=== PATIENT | female | born 1985 | race Caucasian/White ===

== ENCOUNTER 2020-06-17 13:11 | Emergency (ER) | payer OTHER ==
[2020-06-17 13:29] VITALS: BP 112/75; PULSE 92; RESP 18; TEMP 98.9
[2020-06-17] MEDS ORDERED: ACET/COD 300 MG/30 MG STARTER PACK 6 TAB BTL PO STA (13:43)
--- NOTE | 2020-06-17 13:43 | ED ---
ENT HPI - General Chief complaint: Dental/Oral Stated complaint: dental pain Time Seen by Provider: 06/17/20 13:31 Source: patient, RN notes reviewed Mode of arrival: ambulatory Limitations: no limitations - History of Present Illness Initial comments: 35-year-old female presents emergency from she went left upper dental pain. Patient states has been bothersome or last 4 days states the pain has been worse over the night. No fevers or chills no trismus no difficulty swallowing. She's had some caji-ilr-[id number] medications no relief has not seen a dentist recently. She states she has known bad dentition. - Related Data Previous Rx's Medication Instructions Recorded Ibuprofen [Motrin] 600 mg PO Q8HR PRN #20 tab 06/17/20 Penicillin V Potassium [Pen Vee K] 500 mg PO QID #40 tablet 06/17/20 Allergies Allergy/AdvReac Type Severity Reaction Status Date / Time No Known Allergies Allergy Verified 06/17/20 13:25 Review of Systems ROS Statement: Those systems with pertinent positive or pertinent negative responses have been documented in the HPI. ROS Other: All systems not noted in ROS Statement are negative. Past Medical History Past Medical History: No Reported History History of Any Multi-Drug Resistant Organisms: None Reported Past Surgical History: Section Past Psychological History: Anxiety, Depression Smoking Status: Current every day smoker Past Alcohol Use History: Occasional Past Drug Use History: None Reported General Exam Limitations: no limitations General appearance: alert, in no apparent distress Head exam: Present: atraumatic, normocephalic, normal inspection Eye exam: Present: normal appearance, PERRL, EOMI. Absent: scleral icterus, conjunctival injection, periorbital swelling ENT exam: Present: mucous membranes moist, TM's normal bilaterally, normal external ear exam. Absent: normal oropharynx (Dental fracture left upper, no drainable abscess mild erythema mild facial swelling) Neck exam: Present: normal inspection, full ROM. Absent: tenderness, meningismus, lymphadenopathy Respiratory exam: Present: normal lung sounds bilaterally. Absent: respiratory distress, wheezes, rales, rhonchi, stridor Cardiovascular Exam: Present: regular rate, normal rhythm, normal heart sounds. Absent: systolic murmur, diastolic murmur, rubs, gallop, clicks Course Vital Signs 06/17/20 13:26 Temperature 98.9 F Pulse Rate 92 Respiratory 18 Rate Blood Pressure 112/75 O2 Sat by Pulse 98 Oximetry Medical Decision Making - Medical Decision Making Patient has a left upper dental infection, dental fracture will follow-up with oral surgery return parameters were discussed. Disposition Clinical Impression: Toothache, Fracture of tooth Disposition: HOME SELF-CARE Condition: Stable Instructions (If sedation given, give patient instructions): Toothache (ED), Dental Abscess (ED) Additional Instructions: Please return to the Emergency Department if symptoms worsen or any other concerns. Prescriptions: Ibuprofen [Motrin] 600 mg PO Q8HR PRN #20 tab PRN Reason: Pain Penicillin V Potassium [Pen Vee K] 500 mg PO QID #40 tablet Is patient prescribed a controlled substance at d/c from ED?: No Referrals: None,Stated [Primary Care Provider] - 1-2 days Arden Kirkpatrick DDS [STAFF PHYSICIAN] - 1-2 days Time of Disposition: 13:43
== END 2020-06-17 13:55 | disposition home or self-care (01) ==
LOC: EC 13:11
DX: S02.5XXA Fracture of tooth (traumatic), initial encounter for closed fracture (principal); K04.7 Periapical abscess without sinus; F17.200 Nicotine dependence, unspecified, uncomplicated; X58.XXXA Exposure to other specified factors, initial encounter
CPT/HCPCS: 99282

== ENCOUNTER 2022-05-23 14:15 | Emergency (ER) | payer OTHER ==
[2022-05-23 15:45] VITALS: BP 145/79; PULSE 89; RESP 18; TEMP 98.5
[2022-05-23] MEDS ORDERED: ACETAMINOPHEN TAB 325 MG TAB PO STA (15:57)
[2022-05-23] MEDS ORDERED: CLINDAMYCIN 150 MG CAP PO STA (15:59)
--- NOTE | 2022-05-23 16:03 | ED ---
General Adult HPI - General Chief complaint: Skin/Abscess/Foreign Body Stated complaint: left abcess tooth Time Seen by Provider: 05/23/22 15:50 Source: patient, RN notes reviewed, old records reviewed Mode of arrival: ambulatory - History of Present Illness Initial comments: 37-year-old female presents ambulatory with complaints of left upper dental pain for the past 3 days. Patient states started to have some facial swelling and left maxillary yesterday so she took her boyfriend was amoxicillin today she developed a rash. Denies any fevers. No nausea vomiting diarrhea. -: days(s) (3) Location: mouth (left upper tooth 14) Associated Symptoms: rash (after taking amoxicillin yesterday) - Related Data Previous Rx's Medication Instructions Recorded Ibuprofen [Motrin] 600 mg PO Q8HR PRN #20 tab 06/17/20 Penicillin V Potassium [Pen Vee K] 500 mg PO QID #40 tablet 06/17/20 Clindamycin [Cleocin] 450 mg PO Q8H 10 Days #30 cap 05/23/22 Ibuprofen [Motrin] 600 mg PO Q8HR PRN #30 tab 05/23/22 Allergies Allergy/AdvReac Type Severity Reaction Status Date / Time No Known Allergies Allergy Verified 05/23/22 15:45 Review of Systems ROS Statement: Those systems with pertinent positive or pertinent negative responses have been documented in the HPI. ROS Other: All systems not noted in ROS Statement are negative. Past Medical History Past Medical History: No Reported History History of Any Multi-Drug Resistant Organisms: None Reported Past Surgical History: Section Past Psychological History: Anxiety, Depression Smoking Status: Former smoker Past Alcohol Use History: Occasional Past Drug Use History: None Reported General Exam General appearance: alert, in no apparent distress Head exam: Present: atraumatic Eye exam: Present: periorbital swelling, periorbital tenderness Expanded Mouth exam: Present: tongue normal, tongue elevation. Absent: drooling, trismus, muffled voice Teeth exam: Present: dental caries, dental tenderness # (14) Neck exam: Present: full ROM. Absent: tenderness, meningismus, lymphadenopathy Respiratory exam: Absent: respiratory distress, accessory muscle use Cardiovascular Exam: Present: regular rate Neurological exam: Present: alert, oriented X3 Psychiatric exam: Present: normal affect, normal mood Skin exam: Present: warm, dry, normal color. Absent: cyanosis, diaphoretic, petechiae, pallor Course Vital Signs 05/23/22 15:41 Temperature 98.5 F Pulse Rate 89 Respiratory 18 Rate Blood Pressure 145/79 O2 Sat by Pulse 97 Oximetry Medical Decision Making - Medical Decision Making Shared decision making, patient was offered CT scan for facial swelling and declined. She'll be placed on clindamycin. Follow up with a dentist this week. Strict return parameters discussed to return if she develops increased pain swelling or fevers. She is agreeable to this plan of care. She is a nonsmoker. Case discussed with Dr. Stewart Was pt. sent in by a medical professional or institution? @ -no Did you speak to anyone other than the patient for history? @ -no Did you review nursing and triage notes? @ -yes i agree Were old charts reviewed? @ -no Differential Diagnosis? @ -dental abscess, facial cellulitis, Rohit's angina EKG interpreted by me (3pts min.)? @ -[none] X-rays interpreted by me (1pt min.)? @ -[none] CT interpreted by me (1pt min.)? @ -[none] U/S interpreted by me (1pt. min.)? @ -[none] What testing was considered but not performed? (CT, X-rays, U/S, labs)? Why? @CT to rule out abscess was offered patient declined. What meds were considered but not given? Why? @ -None Did you discuss the management of the patient with other professionals? @ -no Did you reconcile home meds? @ -no Was smoking cessation discussed for >3mins.? @ -n/a Was critical care preformed (if so, how long)? @ -no Were there social determinants of health that impacted care today? How? (Homelessness, low income, unemployed, alcoholism, drug addiction, transportation, low edu. Level, literacy, decrease access to med. care, [facility], rehab)? @ -no dental coverage, medicaid only Was there de-escalation of care discussed even if they declined? (Discuss DNR or withdrawal of care, Hospice)? @ -no What co-morbidities impacted this encounter? (DM, HTN, Smoking, COPD, CAD, Cancer, CVA, Hep., AIDS, mental health diagnosis, sleep apnea, morbid obesity)? @ -none Was patient admitted / discharged? @ -discharged Undiagnosed new problem with uncertain prognosis? @ -[none] Drug Therapy requiring intensive monitoring for toxicity (Heparin, Nitro, Insulin, Cardizem)? @ -no Were any procedures done? @ -no, no identify drainable abscess Diagnosis/symptom? @ -dental abscess. Multiple dental caries Acute, or Chronic, or Acute on Chronic? @ -Acute on chronic Uncomplicated (without systemic symptoms) or Complicated (systemic symptoms)? @ -None Side effects of treatment? @ -[none] Exacerbation, Progression, or Severe Exacerbation] @ -[no] Poses a threat to life or bodily function? @ -[no] Disposition Clinical Impression: Dental abscess Disposition: HOME SELF-CARE Condition: Good Instructions (If sedation given, give patient instructions): Dental Abscess (ED) Additional Instructions: Take antibiotics as prescribed. Follow-up with a dentist as soon as possible. Return to the emergency room with any new or concerning symptoms including increased swelling, pain or fevers. [facility] [employer] [facility] [employer] [phone] Prescriptions: Clindamycin [Cleocin] 450 mg PO Q8H 10 Days #30 cap Ibuprofen [Motrin] 600 mg PO Q8HR PRN #30 tab PRN Reason: Pain Is patient prescribed a controlled substance at d/c from ED?: No Referrals: None,Stated [Primary Care Provider] - 1-2 days Time of Disposition: 16:10
[2022-05-23] MEDS ORDERED: ACET/COD 300 MG/30 MG STARTER PACK 6 TAB BTL PO STA (16:12)
[2022-05-23] MEDS ORDERED: KETOROLAC 15 MG/ML 1 ML VIAL IM SCH (16:15)
== END 2022-05-23 16:28 | disposition home or self-care (01) ==
LOC: EC 14:15
DX: K04.7 Periapical abscess without sinus (principal); F41.9 Anxiety disorder, unspecified; F32.A Depression, unspecified; Z87.891 Personal history of nicotine dependence
CPT/HCPCS: 99283; 96372; J1885

== ENCOUNTER 2024-09-05 08:43 | Emergency (ER) | payer OTHER ==
--- NOTE | 2024-09-05 09:09 | ED ---
Lower Extremity Injury HPI - General Chief Complaint: Extremity Injury, Lower Stated Complaint: R Ankle Injury Time Seen by Provider: 09/05/24 08:44 Source: patient, RN notes reviewed Mode of arrival: ambulatory Limitations: no limitations - History of Present Illness Initial Comments: 39-year-old female presents emergency department with chief complaint of right ankle injury. Patient states she stepped off a ledge rolling her ankle planted paresthesias no foot pain no other complaints - Related Data Previous Rx's Medication Instructions Recorded Ibuprofen [Motrin] 600 mg PO Q8HR PRN #20 tab 06/17/20 Penicillin V Potassium [Pen Vee K] 500 mg PO QID #40 tablet 06/17/20 Clindamycin [Cleocin] 450 mg PO Q8H 10 Days #30 cap 05/23/22 Ibuprofen [Motrin] 600 mg PO Q8HR PRN #30 tab 05/23/22 Allergies Allergy/AdvReac Type Severity Reaction Status Date / Time No Known Allergies Allergy Verified 09/05/24 08:54 Review of Systems ROS Statement: Those systems with pertinent positive or pertinent negative responses have been documented in the HPI. ROS Other: All systems not noted in ROS Statement are negative. Past Medical History Past Medical History: No Reported History History of Any Multi-Drug Resistant Organisms: None Reported Past Surgical History: Section Past Psychological History: Anxiety, Depression Smoking Status: Former smoker Past Alcohol Use History: Occasional Past Drug Use History: None Reported General Exam Limitations: no limitations General appearance: alert, in no apparent distress Head exam: Present: atraumatic, normocephalic, normal inspection Respiratory exam: Present: normal lung sounds bilaterally. Absent: respiratory distress, wheezes, rales, rhonchi, stridor Cardiovascular Exam: Present: regular rate, normal rhythm, normal heart sounds. Absent: systolic murmur, diastolic murmur, rubs, gallop, clicks Extremities exam: Present: other (Right ankle there is moderate swelling the lateral malleoli region tenderness palpation neurovasc intact no proximal tib- fib tenderness no foot tenderness.) Neurological exam: Present: alert, reflexes normal. Absent: motor sensory deficit Skin exam: Present: warm, dry, intact, normal color. Absent: rash Course Vital Signs 09/05/24 08:51 Temperature 97.7 F Pulse Rate 78 Respiratory 18 Rate Blood Pressure 129/84 O2 Sat by Pulse 100 Oximetry Medical Decision Making - Medical Decision Making Was pt. sent in by a medical professional or institution (STEPHY Ann, TOOL GRINDER OPERATOR EXTERNAL, urgent care, hospital, or group home...) When possible be specific @ -No Did you speak to anyone other than the patient for history (EMS, parent, family, police, friend...)? What history was obtained from this source @ -No Did you review nursing and triage notes (agree or disagree)? Why? @ -I reviewed and agree with nursing and triage notes Were old charts reviewed (outside hosp., previous admission, EMS record, old EKG, old radiological studies, urgent care reports/EKG's, group home records)? Report findings @ -No old charts were reviewed Differential Diagnosis (chest pain, altered mental status, abdominal pain women, abdominal pain men, vaginal bleeding, weakness, fever, dyspnea, syncope, headache, dizziness, GI bleed, back pain, seizure, CVA, palpatations, mental health, musculoskeletal)? @ -Ankle sprain, leg fracture EKG interpreted by me (3pts min.). @ -None X-rays interpreted by me (1pt min.). @ -X-ray right ankle no acute fracture, soft tissue swelling noted. CT interpreted by me (1pt min.). @ -None done U/S interpreted by me (1pt. min.). @ -None done What testing was considered but not performed or refused? (CT, X-rays, U/S, labs)? Why? @ -None What meds were considered but not given or refused? Why? @ -None Did you discuss the management of the patient with other professionals (professionals i.e. STEPHY Ann, TOOL GRINDER OPERATOR [employer]TERNAL, lab, RT, psych nurse, criminal justice social worker, fringe maker, teacher, ship officer, renal case manager)? Give summary @ -No Was smoking cessation discussed for >3mins.? @ -No Was critical care preformed (if so, how long)? @ -No Were there social determinants of health that impacted care today? How? (Homelessness, low income, unemployed, alcoholism, drug addiction, transportation, low edu. Level, literacy, decrease access to med. care, long-term, rehab)? @ -No Was there de-escalation of care discussed even if they declined (Discuss DNR or withdrawal of care, Hospice)? DNR status @ -No What co-morbidities impacted this encounter? (DM, HTN, Smoking, COPD, CAD, Cancer, CVA, ARF, Chemo, Hep., AIDS, mental health diagnosis, sleep apnea, morbid obesity)? @ -None Was patient admitted / discharged? Hospital course, mention meds given and route, prescriptions, significant lab abnormalities, going to OR and other pertinent info. @ -discharged patient has right ankle sprain was placed in a stirrup Aircast will follow-up with orthopedics return parameters discussed. Undiagnosed new problem with uncertain prognosis? @ -No Drug Therapy requiring intensive monitoring for toxicity (Heparin, Nitro, Insulin, Cardizem)? @ -No Were any procedures done? @ -No Diagnosis/symptom? @ -Ankle sprain Acute, or Chronic, or Acute on Chronic? @ -Acute Uncomplicated (without systemic symptoms) or Complicated (systemic symptoms)? @ -Uncomplicated Side effects of treatment? @ -No Exacerbation, Progression, or Severe Exacerbation? @ -No Poses a threat to life or bodily function? How? (Chest pain, [place], [place], pneumonia, PE, COPD, DKA, ARF, appy, cholecystitis, CVA, Diverticulitis, Homicidal, Suicidal, threat to staff... and all critical care pts) @ -No Disposition Clinical Impression: Ankle sprain Disposition: HOME SELF-CARE Condition: Stable Instructions (If sedation given, give patient instructions): Ankle Sprain (ED) Additional Instructions: Please return to the Emergency Department if symptoms worsen or any other concerns. Is patient prescribed a controlled substance at d/c from ED?: No Referrals: None,Stated [Primary Care Provider] - 1-2 days Morales Travis MD [Medical Doctor] - 1-2 days Time of Disposition: 10:54
[2024-09-05] MEDS: HYDROcodone/APAP 5-325MG 1 EACH TAB PO STA (09:10)
[2024-09-05] MEDS: IBUPROFEN 600 MG TAB PO STA (09:10)
--- NOTE | 2024-09-05 10:28 | XR ---
EXAMINATION TYPE: XR ankle complete RT DATE OF EXAM: 09/05/2024 10:16 AM COMPARISON: None CLINICAL INDICATION: Female, 39 years old with history of pain, swelling lateral; PHH, pain TECHNIQUE: 3 views FINDINGS: Ankle mortise is congruent with preservation of the distal tibia-fibula overlap. Talar dome is intact . No acute fracture, subluxation, or dislocation is seen. Subtalar joint align. Possible mild thicken ing at the distal third Achilles tendon. IMPRESSION: No acute osseous abnormality seen. Possible mild insertional Achilles tendinopathy. Correlate for any localizing pain. [facility], Workstation: [facility], 09/05/2024 10:25 AM
[2024-09-05] MEDS: ACET/COD 300 MG/30 MG STARTER PACK 6 TAB BTL PO STA (11:13)
[2024-09-05 11:31] VITALS: BP 122/80; PULSE 77; RESP 20; TEMP 98.2
== END 2024-09-05 11:32 | disposition home or self-care (01) ==
LOC: EC 08:43
DX: S93.401A Sprain of unspecified ligament of right ankle, initial encounter (principal); Z87.891 Personal history of nicotine dependence; W18.43XA Slipping, tripping and stumbling without falling due to stepping from one level to another, initial encounter
CPT/HCPCS: 73610; 99283; 29515; L4350